=== PATIENT | male | born 1955 | race Caucasian/White ===

== ENCOUNTER 2024-10-08 15:47 | Emergency (ER) | payer MEDICARE, SELFPAY ==
[2024-10-08 15:48] VITALS: BP 175/91
[2024-10-08 16:15] VITALS: BP 141/85; BMI 28.7
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
[2024-10-08] MEDS: ADACEL 0.5 ML IM (18:20)
[2024-10-08 18:24] LABS: Hematocrit 41.5 % (39.0-52.0); Hemoglobin 14.1 g/dL (13.0-18.0); Mean Corp Hgb Conc. 34.0 g/dL (33.0-37.0); Mean Corpuscular Volume 89.2 fL (80.0-94.0); Nucleated Red Blood Cells % 0 % (-); Platelet Count 155 10^3/uL (130-400); Red Cell Dist. Width 13.8 % (11.5-14.5)
[2024-10-08 18:52] LABS: Blood Urea Nitrogen 14 mg/dl (9-20); Calcium 9.1 mg/dl (8.4-10.2); Carbon Dioxide 23 mmol/L (22-30); Chloride 106 mmol/L (98-107); Estimated Creatinine Clearance 85 ml/min; Glucose 106 mg/dl (70-99); Potassium 4.3 mmol/L (3.5-5.1); Sodium 137 mmol/L (135-145); eGFR > 60.00
[2024-10-08 18:54] LABS: COVID-19 Antigen Negative (Negative)
[2024-10-09 13:30] VITALS: BP 159/78
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
--- NOTE | 2024-10-09 17:38 | WOUNDNOTE ---
As directed by Dr. Dubon, LLE wound dressed with vaseline gauze, nonadherent adaptic dressings, then wrapped with cling. Pt covered with his own stocking sock and non-slip sock.
[2024-10-10 09:00] VITALS: BP 128/72
--- NOTE | 2024-10-10 10:15 | ED.CRISIS ---
ED Crisis Note
ED Crisis Note
Subjective:
I did order the patient's usual meds
Objective:
No new issues per
Assessment/Plan:
Psychiatrist, Dr. Resendez to bedside, due to patient suicidal ideations. Plan for inpatient therapy. Plan is possible transfer to [place].
[2024-10-10] MEDS: FLOMAX 0.4 MG PO (10:20)
[2024-10-10] MEDS: WELLBUTRIN XL (24 hour extended release) 150 MG PO (10:20)
[2024-10-10] MEDS: ABILIFY 2 MG PO (10:20)
[2024-10-10] MEDS: PERCOCET 5/325 1 TABLET PO (10:20)
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
[2024-10-10 14:39] VITALS: BP 127/76
== END 2024-10-10 15:17 ==
LOC: EMR 15:47
PROVIDERS: CONSULT PHYSICIAN Psychiatry & Neurology Psychiatry; EMERGENCY PHYSICIAN Emergency Medicine; FAMILY PHYSICIAN Internal Medicine
DX: F33.9 Major depressive disorder, recurrent, unspecified (principal); R45.851 Suicidal ideations; S60.912A Unspecified superficial injury of left wrist, initial encounter; S10.81XA Abrasion of other specified part of neck, initial encounter; S20.312A Abrasion of left front wall of thorax, initial encounter; S80.212A Abrasion, left knee, initial encounter; S80.211A Abrasion, right knee, initial encounter; Y04.0XXA Assault by unarmed brawl or fight, initial encounter; Z23 Encounter for immunization
CPT/HCPCS: 99285; 90471; 80048; 80306; 85025; 87502; 87811; 90715; 93005